=== PATIENT | male | born 1960 | race African-American/Black ===

== ENCOUNTER 2021-01-21 11:13 | Emergency (ER) | payer MEDICAID, SELFPAY ==
[~2021-01-21] VITALS: Ht 180.3 cm; Wt 75.0 kg
[2021-01-21] MEDS ORDERED: PERTUSS(ACELL),DIPH,TET VAC/PF 0.5 ML SYRINGE IM. ONE (13:45)
[2021-01-21 14:30] VITALS: BP 128/70
== END 2021-01-21 14:44 | disposition home or self-care (01) ==
LOC: EMS 11:14
DX: M79.644 Pain in right finger(s) (principal)
CPT/HCPCS: 90471; 90715; 99283

== ENCOUNTER 2022-04-15 07:11 | Emergency (ER) | payer MEDICAID, OTHER ==
[~2022-04-15] VITALS: Ht 182.9 cm; Wt 81.8 kg
[2022-04-15] MEDS ORDERED: PERTUSS(ACELL),DIPH,TET VAC/PF 0.5 ML SYRINGE IM. ONE (07:45)
[2022-04-15] MEDS ORDERED: MORPHINE SULFATE 4 MG/ML SYRINGE IVP ONE (07:45)
[2022-04-15] MEDS ORDERED: LIDOCAINE 2%/EPI 1:200,000/PF 20 ML VIAL ID ONE (09:15)
[2022-04-15] MEDS ORDERED: AMOX1TAB16 PO (10:21)
[2022-04-15] MEDS ORDERED: IBUP-2070 PO (10:21)
[2022-04-15] MEDS ORDERED: BACITRACIN ZINC/POLYMYXIN B 14.2 GM OINTMENT TP ONE (10:30)
[2022-04-15 10:36] VITALS: BP 122/80
== END 2022-04-15 11:08 | disposition home or self-care (01) ==
LOC: EMS 07:22
DX: S46.221A Laceration of muscle, fascia and tendon of other parts of biceps, right arm, initial encounter (principal); S51.811A Laceration without foreign body of right forearm, initial encounter; Z90.49 Acquired absence of other specified parts of digestive tract; W54.0XXA Bitten by dog, initial encounter; Y93.01 Activity, walking, marching and hiking; Y92.89 Other specified places as the place of occurrence of the external cause; Y99.8 Other external cause status
CPT/HCPCS: 99284; 96374; 73060; 73070; 73090; 90715; 90471; 12005; J2270

== ENCOUNTER 2022-04-23 11:43 | Emergency (ER) | payer OTHER ==
[~2022-04-23 11:43] MED LIST: AMOX1TAB16 PO; IBUP-2070 PO
== END 2022-04-23 13:03 | disposition left against medical advice (07) ==
LOC: EMS 11:49
DX: Z53.21 Procedure and treatment not carried out due to patient leaving prior to being seen by health care provider (principal)

== ENCOUNTER 2022-04-30 10:48 | Emergency (ER) | payer OTHER ==
[~2022-04-30] VITALS: Ht 182.9 cm; Wt 86.4 kg
[2022-04-30 12:43] VITALS: BP 125/87
== END 2022-04-30 12:50 | disposition home or self-care (01) ==
LOC: EMS 11:00
DX: S41.111D Laceration without foreign body of right upper arm, subsequent encounter (principal); Z48.02 Encounter for removal of sutures; Z90.49 Acquired absence of other specified parts of digestive tract; X58.XXXD Exposure to other specified factors, subsequent encounter
CPT/HCPCS: 99281; Z7502

== ENCOUNTER 2022-06-16 10:28 | Emergency (ER) | payer OTHER ==
[~2022-06-16] VITALS: Ht 185.4 cm; Wt 80.9 kg
[2022-06-16 14:14] LABS: BASOPHILS % (AUTO) 1.2 % (0.0-2.0); HEMATOCRIT 42.9 % (41-53); HEMOGLOBIN 13.9 g/dL (13.5-17.5); LYMPHOCYTES # (AUTO) 2.2 K/uL (1.0-4.8); LYMPHOCYTES % (AUTO) 47.5 % (22.0-44.0); MEAN CORPUSCULAR HEMOGLOBIN 27.6 pg (26.0-34.0); MEAN CORPUSCULAR HGB CONC 32.4 G/dL (31.0-37.0); MEAN CORPUSCULAR VOLUME 85 fL (80-100); MONOCYTES # (AUTO) 0.5 K/uL (0.1-1.0); MONOCYTES % (AUTO) 9.7 % (2.0-9.0); NEUTROPHILS # (AUTO) 1.9 K/uL (1.8-7.7); NEUTROPHILS % (AUTO) 39.6 % (40.0-70.0); PLATELET COUNT (AUTO) 138 K/uL (150-450); RED BLOOD CELL COUNT(AUTO) 5.04 MIL/uL (4.50-5.90); RED CELL DISTRIBUTION WIDTH 15.2 % (11.5-14.5)
[2022-06-16 14:22] LABS: ANION GAP 4 mmol/L (8-16); CALCIUM, TOTAL 9.3 mg/dL (8.8-10.5); CARBON DIOXIDE 30 mmol/L (22-29); CHLORIDE 102 mmol/L (98-107); CREATININE 1.18 mg/dL (0.60-1.30); GLOMERULAR FILTR. RATE CALC > 60 mL/min (>60); GLUCOSE,RANDOM 124 mg/dL (70-110); POTASSIUM 3.7 mmol/L (3.5-5.1); SODIUM SERUM 136 mmol/L (136-145); UREA NITROGEN, BLOOD 15 mg/dL (7-18)
[2022-06-16 14:28] LABS: PROTHROMBIN TIME 10.3 SEC (9.4-11.6)
[2022-06-16 14:37] LABS: B-TYPE NATRIURETIC PEPTIDE 207 pg/mL (0-100)
[2022-06-16 14:46] LABS: ALANINE AMINOTRANSFERASE 92 U/L (12-78); ALBUMIN 3.4 g/dL (3.4-5.0); ALKALINE PHOSPHATASE 82 U/L (46-116); ASPARTATE AMINOTRANSFERASE 67 U/L (15-37); BILIRUBIN,TOTAL 0.8 mg/dL (0.1-1.0); CREATINE KINASE, TOTAL ONLY 456 U/L (39-308); TOTAL PROTEIN, SERUM 7.6 g/dL (6.4-8.2)
[2022-06-16] MEDS ORDERED: ACETAMINOPHEN 325 MG TABLET PO ONE (15:00)
[2022-06-16] MEDS ORDERED: IBUPROFEN 400 MG TABLET PO ONE (15:00)
[2022-06-16 15:22] LABS: COVID AG,FIA SOURCE NASOPHARYNGEAL
[2022-06-16 15:34] VITALS: BP 137/83
[2022-06-16 15:52] LABS: INFLUENZA TYPE A NEGATIVE FOR TYPE A (NEGATIVE); INFLUENZA TYPE B NEGATIVE FOR TYPE B (NEGATIVE)
[2022-06-17 05:07] LABS: HIV 1-2 SCREEN 4TH GEN W/RFLX Non Reactive (Non Reactive)
== END 2022-06-16 16:46 | disposition home or self-care (01) ==
LOC: EMS 12:45
DX: R05.9 Cough, unspecified (principal); B34.9 Viral infection, unspecified; Z90.49 Acquired absence of other specified parts of digestive tract; Z20.822 Contact with and (suspected) exposure to COVID-19
CPT/HCPCS: 71045; 80053; 82550; 83880; 84484; 85025; 85610; 85730; 87389; 87804; 93005; 99285; 36415-L1; 36415-TC

== ENCOUNTER 2023-06-11 11:52 | Emergency (ER) | payer OTHER ==
[~2023-06-11] VITALS: Ht 182.9 cm; Wt 81.8 kg
[2023-06-11 11:59] VITALS: TEMP 98
[2023-06-11] MEDS ORDERED: TRAM-559 PO ×2 (13:38→14:20)
[2023-06-11 14:00] VITALS: BP 144/80; PULSE 60; RESP 18
== END 2023-06-11 14:05 | disposition home or self-care (01) ==
LOC: EMS 11:57
DX: S86.211A Strain of muscle(s) and tendon(s) of anterior muscle group at lower leg level, right leg, initial encounter (principal); Z90.49 Acquired absence of other specified parts of digestive tract
CPT/HCPCS: 93971; 99284; 73562-TC; 73590-TC; Z7502

== ENCOUNTER 2024-01-17 21:28 | Emergency (ER) | payer OTHER ==
[~2024-01-17] VITALS: Ht 182.9 cm; Wt 80.9 kg
[~2024-01-17 21:28] MED LIST changes: -AMOX1TAB16 PO; -IBUP-2070 PO; +TRAM50TA5 PO
[2024-01-17 21:34] VITALS: TEMP 98.4
[2024-01-17 22:52] LABS: BASOPHILS % (AUTO) 1.3 % (0.0-2.0); EOSINOPHILS % (AUTO) 0.7 % (1.0-6.0); HEMATOCRIT 41.3 % (41-53); HEMOGLOBIN 13.6 g/dL (13.5-17.5); LYMPHOCYTES # (AUTO) 1.3 K/uL (1.0-4.8); LYMPHOCYTES % (AUTO) 34.2 % (22.0-44.0); MEAN CORPUSCULAR HEMOGLOBIN 27.9 pg (26.0-34.0); MEAN CORPUSCULAR HGB CONC 32.8 G/dL (31.0-37.0); MEAN CORPUSCULAR VOLUME 85 fL (80-100); MONOCYTES # (AUTO) 0.2 K/uL (0.1-1.0); MONOCYTES % (AUTO) 6.2 % (2.0-9.0); NEUTROPHILS # (AUTO) 2.2 K/uL (1.8-7.7); NEUTROPHILS % (AUTO) 57.6 % (40.0-70.0); PLATELET COUNT (AUTO) 126 K/uL (150-450); RED BLOOD CELL COUNT(AUTO) 4.85 MIL/uL (4.50-5.90); RED CELL DISTRIBUTION WIDTH 15.4 % (11.5-14.5); WHITE BLOOD COUNT (AUTO) 3.9 K/uL (4.5-11.0)
[2024-01-17 22:56] LABS: ANION GAP 15 mmol/L (8-16); CALCIUM, TOTAL 8.9 mg/dL (8.8-10.5); CARBON DIOXIDE 24 mmol/L (22-29); CHLORIDE 101 mmol/L (98-107); CREATININE 1.03 mg/dL (0.60-1.30); GLOMERULAR FILTR. RATE CALC > 60 mL/min (>60); GLUCOSE,RANDOM 103 mg/dL (70-110); POTASSIUM 4.1 mmol/L (3.5-5.1); SODIUM SERUM 140 mmol/L (136-145); UREA NITROGEN, BLOOD 13 mg/dL (7-18)
[2024-01-17 23:03] LABS: TROPONIN I-HIGH SENSITIVITY 39 ng/L (<76)
[2024-01-17 23:07] LABS: B-TYPE NATRIURETIC PEPTIDE 83 pg/mL (0-100)
[2024-01-17 23:11] LABS: CREATINE KINASE, TOTAL ONLY 400 U/L (39-308)
[2024-01-17] MEDS ORDERED: AMOX500C2 PO (23:26)
[2024-01-17] MEDS ORDERED: TRAM50TA5 PO (23:26)
[2024-01-17] MEDS ORDERED: IBUP-1492 PO (23:26)
[2024-01-17] MEDS: KETOROLAC TROMETHAMINE 30 MG/ML VIAL IVP ONE (23:37)
[2024-01-17] MEDS: SODIUM CHLORIDE 0.9% 1,000 ML IV ONE (23:38)
[2024-01-17] MEDS: CefTRIAXone 1 GM/DEXTROSE 50 ML IV ONE (23:59)
[2024-01-18 00:49] LABS: APPEARANCE,URINE CLEAR (CLEAR); BILIRUBIN,URINE NEGATIVE (NEGATIVE); COLOR,URINE LIGHT YELLOW (YELLOW); GLUCOSE, URINE (UA) NEGATIVE (NEGATIVE); KETONES,URINE NEGATIVE (NEGATIVE); LEUKOCYTE ESTERASE ,URINE NEGATIVE (NEGATIVE); NITRATE,URINE NEGATIVE (NEGATIVE); OCCULT BLOOD,URINE NEGATIVE (NEGATIVE); PROTEIN,URINE NEGATIVE (NEGATIVE); SPECIFIC GRAVITIY, URINE 1.013 (1.003-1.030); UROBILINOGEN,URINE <=1.0 mg/dL (<=1.0)
[2024-01-18 00:56] LABS: ALCOHOL, URINE DRUG SCREEN POSITIVE (NEGATIVE); AMPHET/METH SCREEN,URINE NEGATIVE (NEGATIVE); BARBITURATE SCREEN, URINE NEGATIVE (NEGATIVE); BENZODIAZEPINES SCREEN,URINE NEGATIVE (NEGATIVE); CANNABINOID SCREEN,URINE POSITIVE (NEGATIVE); COCAINE SCREEN,URINE NEGATIVE (NEGATIVE); METHADONE SCREEN, URINE NEGATIVE (NEGATIVE); OPIATE SCREEN,URINE NEGATIVE (NEGATIVE); PHENCYCLIDINE SCREEN,URINE NEGATIVE (NEGATIVE)
[2024-01-18 03:16] VITALS: BP 147/99; PULSE 87; RESP 18
== END 2024-01-18 03:30 | disposition home or self-care (01) ==
LOC: EMS 21:28
DX: K04.7 Periapical abscess without sinus (principal); R00.2 Palpitations; F10.129 Alcohol abuse with intoxication, unspecified; R51.9 Headache, unspecified; Z79.899 Other long term (current) drug therapy; Y90.6 Blood alcohol level of 120-199 mg/100 ml
CPT/HCPCS: 99285; 96365; 71045; 96375; 80048; 82550; 83735; 83880; 84484; 85025; 85379; 36415; 93005; 80307; 81003; G0480; J0696; J1885; J7030

== ENCOUNTER 2024-08-30 17:56 | Emergency (ER) | payer OTHER ==
[~2024-08-30] VITALS: Ht 185.4 cm; Wt 79.5 kg
[~2024-08-30 17:56] MED LIST changes: +AMOX500C2 PO; +IBUP-1492 PO
[2024-08-30 18:05] VITALS: TEMP 98.2
[2024-08-30] MEDS: PERTUSS(ACELL),DIPH,TET/PF 0.5 ML SYRINGE [ADULT] IM. ONE (21:23)
[2024-08-30 21:29] VITALS: BP 135/88; PULSE 87; RESP 18; O2SAT 98
== END 2024-08-30 22:00 | disposition home or self-care (01) ==
LOC: EMS 17:56
DX: S91.312A Laceration without foreign body, left foot, initial encounter (principal); Z90.49 Acquired absence of other specified parts of digestive tract; Z23 Encounter for immunization; W52.XXXA Crushed, pushed or stepped on by crowd or human stampede, initial encounter; Y93.89 Activity, other specified; Y92.89 Other specified places as the place of occurrence of the external cause; Y99.8 Other external cause status
CPT/HCPCS: 90471; 90715; 99283